=== PATIENT | female | born 1965 | race Caucasian/White ===

== ENCOUNTER 2018-02-19 19:00 | Outpatient (CLI) | payer BC | END 2018-02-19 23:59 | disposition home or self-care (01) | LOC: D.MAMMO 19:00 | DX: Z12.31 Encounter for screening mammogram for malignant neoplasm of breast (principal) ==

== ENCOUNTER → 2018-06-01 09:21 | Outpatient (CLI) | payer BC ==
[~2018-06-01 09:21] MED LIST: ASPIRIN81 MG PO; BENTYL 20 MG TA20 MG PO; CELEBREX 100 M100 MG PO; CRESTOR20 MG PO; EFFEXOR XR150 MG PO; FLAGYL500 MG PO; FLORAJEN3 CAPS460 MG PO; HYDROCHLOROTHIA25 MG PO; KLONOPIN1 MG PO; LEVAQUIN750 MG PO; NORCO 10-325 TA1 TAB PO; PEPCID AC20 MG PO; TENORMIN50 MG PO
[2018-06-02 10:56] VITALS: BMI 31.4
== END | disposition home or self-care (01) ==
LOC: D.CT 09:21
DX: R10.12 Left upper quadrant pain (principal)

== ENCOUNTER 2018-06-01 10:30 | Inpatient (IN) | payer BC ==
[~2018-06-01] VITALS: Ht 165.1 cm; Wt 85.7 kg
--- NOTE | ~2018-06-01 | MORECARE ---
CASE MANAGEMENT DISCHARGE SUMMARY PATIENT: WALI HASSAN UNIT: [id number] ADM DATE: 06/01/18 AGE: 52 : 63 SEX: F ROOM/BED: D.1211 AUTHOR: AXEL,DOC PHYSICIAN: REFERRING PHYSICIAN: CRYSTAL LUDWIG MD DATE OF SERVICE: 06/07/18 Discharge Plan Patient Name: WALI HASSAN [facility] 1965 Planned Disposition: Home Anticipated Discharge Date: Discharge Date: 06/05/2018 Expected LOS: Initial Reviewer: [email or web address] Initial Review Date: 06/01/2018 Generated: 06/07/18 10:21 am Comments DCP- Discharge Planning Updated by [email or web address]: Shelby Ugalde on 06/02/18 5:[address] Patient Name: WALI HASSAN Admission Status: ER Accout number: [id number] Admission Date: 06-01-2018 : 1965 Admission Diagnosis:GASTROINTESTINAL HEMORRHAGE, UNSPECIFIED Attending: CRYSTAL LUDWIG Current LOS: 1 Anticipated DC Date: Planned Disposition: Home Primary Insurance: [employer] O Discharge Planning Comments: CM met with patient at bedside. Patient states that she will return home with at discharge. Patient denies any discharge needs at this time. CM will continue to follow and assist with discharge planning / needs. Hand Roller Engraver: Shelby Ugalde DCPIA - Discharge Planning Initial Assessment Updated by [email or web address]: Shelby Ugalde on 06/02/18 6:06 pm * Is the patient Alert and Oriented? Yes * How many steps to enter\exit or inside your home? * PCP Mercedes Orozco * Pharmacy [facility] * Preadmission Environment Home with Family * ADLs Independent * Equipment CPAP * List name and contact numbers for known caregivers / representatives who currently or will assist patient after discharge: Cedric Hassan [phone] * Verbal permission to speak to the caregivers and representatives has been obtained from the patient. N/A * Community resources currently utilized None * Additional services required to return to the preadmission environment? No * Can the patient safely return to the preadmission environment? Yes * Has this patient been hospitalized within the prior 30 days at any hospital? No Last DP export: 06/02/18 5:08 Patient Name: WALI HASSAN Page [id number] at 0921 All edits/amendments must be made on the electronic document DICTATION DATE: 06/07/18920 WIRELESS ARCHITECT: SHERRY 06/07/18920 RPT#: [id number] DC DATE:06/05/18 STATUS: DIS IN [facility] [address] [place] [address] END OF REPORT
--- NOTE | ~2018-06-01 | MORECARE ---
CASE MANAGEMENT DISCHARGE SUMMARY PATIENT: WALI HASSAN UNIT: [id number] ADM DATE: 06/01/18 AGE: 52 : 63 SEX: F ROOM/BED: D.1211 AUTHOR: AXEL,DOC PHYSICIAN: REFERRING PHYSICIAN: CRYSTAL LUDWIG MD DATE OF SERVICE: 06/02/18 Discharge Plan Patient Name: WALI HASSAN [facility]:[employer] : 1965 Planned Disposition: Home Anticipated Discharge Date: Discharge Date: Expected LOS: Initial Reviewer: [email or web address] Initial Review Date: 06/01/2018 Generated: 06/02/18 7:08 pm Comments DCP- Discharge Planning Updated by [email or web address]: Shelby Ugalde on 06/02/18 5:[address] Patient Name: WALI HASSAN Admission Status: ER Accout number: [id number] Admission Date: 06-01-2018 : 1965 Admission Diagnosis:GASTROINTESTINAL HEMORRHAGE, UNSPECIFIED Attending: CRYSTAL LUDWIG Current LOS: 1 Anticipated DC Date: Planned Disposition: Home Primary Insurance: [employer] O Discharge Planning Comments: CM met with patient at bedside. Patient states that she will return home with at discharge. Patient denies any discharge needs at this time. CM will continue to follow and assist with discharge planning / needs. Institutional Cook: Shelby Ugalde DCPIA - Discharge Planning Initial Assessment Updated by [email or web address]: Shelby Ugalde on 06/02/18 6:06 pm * Is the patient Alert and Oriented? Yes * How many steps to enter\exit or inside your home? * PCP Mercedes Orozco * Pharmacy [facility] * Preadmission Environment Home with Family * ADLs Independent * Equipment CPAP * List name and contact numbers for known caregivers / representatives who currently or will assist patient after discharge: Cedric Hassan [phone] * Verbal permission to speak to the caregivers and representatives has been obtained from the patient. N/A * Community resources currently utilized None * Additional services required to return to the preadmission environment? No * Can the patient safely return to the preadmission environment? Yes * Has this patient been hospitalized within the prior 30 days at any hospital? No Patient Name: WALI HASSAN Page [id number] at 1808 All edits/amendments must be made on the electronic document DICTATION DATE: 06/02/181807 APPLICATION DEVELOPER: SHERRY 06/02/181807 RPT#: [id number] DC DATE: STATUS: ADM IN [facility] [address] [place] [address] END OF REPORT
[2018-06-01] MEDS ORDERED: KLONOPIN1 MG PO (10:36)
[2018-06-01] MEDS ORDERED: EFFEXOR XR150 MG PO (10:36)
[2018-06-01] MEDS ORDERED: HYDROCHLOROTHIA25 MG PO (10:37)
[2018-06-01] MEDS ORDERED: TENORMIN50 MG PO (10:37)
[2018-06-01] MEDS ORDERED: CRESTOR20 MG PO (10:37)
[2018-06-01] MEDS ORDERED: NORCO 10-325 TA1 TAB PO (10:37)
[2018-06-01] MEDS ORDERED: CELEBREX 100 M100 MG PO (10:38)
[2018-06-01] MEDS ORDERED: ASPIRIN81 MG PO (10:38)
[2018-06-01 11:14] LABS: BASOPHILS 0.1 % (0-2); EOSINOPHILS 0.6 % (0-7); HEMATOCRIT 46.4 % (36.0-48.0); IMMATURE GRANULOCYTES 0.3 % (0-5); LYMPHOCYTES 22.7 % (15-50); MCH 31.9 pg (26.0-34.0); MCHC 34.5 g/dL (31.0-37.0); MCV 92.6 fL (80.0-100.0); MEAN PLATELET VOLUME 10.4 fL (7.4-10.4); MONOCYTES 11.5 % (2-11); NEUTROPHILS 64.8 % (40-80); PLATELET COUNT 263 10x3/uL (130-400); RBC 5.01 10x6/uL (4.00-5.40); RDW 12.5 % (11.5-14.5); WBC 11.7 10x3/uL (4.8-10.8)
[2018-06-01 11:27] LABS: ALBUMIN 3.8 g/dL (3.4-5.0); ALKALINE PHOSPHATASE 95 U/L (46-116); ALT (SGPT) 58 U/L (10-68); AMYLASE - SERUM 55 U/L (25-115); BILIRUBIN - TOTAL 0.76 mg/dL (0.2-1.3); CALC OSMOLALITY 272 mosm/kg (275-300); CALCIUM 9.1 mg/dL (8.5-10.1); CARBON DIOXIDE 32.7 mmol/L (21.0-32.0); CHLORIDE - SERUM 98 mmol/L (98-107); CREATININE - SERUM 0.8 mg/dL (0.6-1.3); GLUCOSE 103 mg/dL (74-106); LIPASE 136 U/L (73-393); POTASSIUM - SERUM 3.6 mmol/L (3.5-5.1); PROTEIN - SERUM 7.8 g/dL (6.4-8.2); SODIUM 137 mmol/L (136-145); UREA NITROGEN 10 mg/dL (7-18); eGFR NON AFRICAN AMERICAN 79 mL/min (90-120)
[2018-06-01 11:30] LABS: APTT 28.5 SECONDS (22.8-39.4); INR 0.97 (0.85-1.17); PROTIME 12.6 SECONDS (11.6-15.0)
[2018-06-01 12:56] LABS: ERYTHROCYTE SEDIMENTATION RATE 5 mm/hr (0-30)
[2018-06-01 14:00] VITALS: BP 121/78
[2018-06-01 14:44] LABS: APPEARANCE CLEAR (CLEAR); BILIRUBIN NEGATIVE (NEGATIVE); COLOR YELLOW (YELLOW); GLUCOSE NEGATIVE (NEGATIVE); KETONE NEGATIVE (NEGATIVE); NITRITE NEGATIVE (NEGATIVE); PROTEIN NEGATIVE (NEGATIVE); UROBILINOGEN NORMAL (NORMAL)
[2018-06-01 14:46] LABS: BACTERIA FEW /hpf (NONE SEEN); RED CELLS - URINE OCC /hpf (0-5); WHITE CELLS - URINE 0-5 /hpf (0-5)
[2018-06-01 17:34] VITALS: BP 137/87; BMI 31.5
[2018-06-01 20:06] VITALS: BP 131/76
[2018-06-02] VITALS: BP 110/63
[2018-06-02 04:00] VITALS: BP 93/54
[2018-06-02 05:38] LABS: BASOPHILS 0.1 % (0-2); EOSINOPHILS 1.7 % (0-7); HEMATOCRIT 38.7 % (36.0-48.0); LYMPHOCYTES 40.6 % (15-50); MCH 31.8 pg (26.0-34.0); MCHC 33.6 g/dL (31.0-37.0); MEAN PLATELET VOLUME 10.1 fL (7.4-10.4); MONOCYTES 12.7 % (2-11); NEUTROPHILS 44.9 % (40-80); RBC 4.09 10x6/uL (4.00-5.40); RDW 12.7 % (11.5-14.5)
[2018-06-02 06:10] LABS: ALKALINE PHOSPHATASE 66 U/L (46-116); BILIRUBIN - TOTAL 0.72 mg/dL (0.2-1.3); CALC OSMOLALITY 277 mosm/kg (275-300); CALCIUM 8.2 mg/dL (8.5-10.1); CARBON DIOXIDE 29.2 mmol/L (21.0-32.0); CHLORIDE - SERUM 104 mmol/L (98-107); CREATININE - SERUM 0.8 mg/dL (0.6-1.3); GLUCOSE 116 mg/dL (74-106); POTASSIUM - SERUM 3.5 mmol/L (3.5-5.1); SODIUM 140 mmol/L (136-145); UREA NITROGEN 8 mg/dL (7-18); eGFR NON AFRICAN AMERICAN 79 mL/min (90-120)
[2018-06-02 06:12] LABS: MCV 94.6 fL (80.0-100.0); PLATELET COUNT 202 10x3/uL (130-400); WBC 7.6 10x3/uL (4.8-10.8)
[2018-06-02 06:16] LABS: ALBUMIN 2.8 g/dL (3.4-5.0); ALT (SGPT) 38 U/L (10-68); PROTEIN - SERUM 5.8 g/dL (6.4-8.2)
[2018-06-02 07:42] VITALS: BP 103/47
[2018-06-02 10:56] VITALS: Ht 165.1 cm; Wt 85.7 kg
[2018-06-02 11:37] VITALS: BP 105/61
[2018-06-02 20:00] VITALS: BP 84/47
[2018-06-02 23:25] VITALS: BP 88/53
[2018-06-03 04:00] VITALS: BP 145/70
[2018-06-03 06:55] LABS: BASOPHILS 0.2 % (0-2); EOSINOPHILS 1.3 % (0-7); HEMATOCRIT 36.2 % (36.0-48.0); HEMOGLOBIN 12.2 g/dL (12-16); IMMATURE GRANULOCYTES 0.1 % (0-5); LYMPHOCYTES 29.6 % (15-50); MCH 31.2 pg (26.0-34.0); MCHC 33.7 g/dL (31.0-37.0); MEAN PLATELET VOLUME 9.8 fL (7.4-10.4); MONOCYTES 9.4 % (2-11); NEUTROPHILS 59.4 % (40-80); PLATELET COUNT 198 10x3/uL (130-400); RBC 3.91 10x6/uL (4.00-5.40); RDW 12.3 % (11.5-14.5); WBC 8.3 10x3/uL (4.8-10.8)
[2018-06-03 06:58] LABS: MCV 92.6 fL (80.0-100.0)
[2018-06-03 07:15] VITALS: BP 118/61
[2018-06-03 07:15] LABS: ANION GAP 9.4 mmol/L (8-16); CALCIUM 8.3 mg/dL (8.5-10.1); CARBON DIOXIDE 30.8 mmol/L (21.0-32.0); CREATININE - SERUM 0.9 mg/dL (0.6-1.3); POTASSIUM - SERUM 3.2 mmol/L (3.5-5.1)
[2018-06-03 11:15] VITALS: BP 93/49
[2018-06-03 15:37] VITALS: BP 122/41
[2018-06-03 19:39] VITALS: BP 106/68
[2018-06-04] VITALS: BP 98/57
[2018-06-04 04:00] VITALS: BP 107/68
[2018-06-04 06:42] LABS: BASOPHILS 0.1 % (0-2); HEMATOCRIT 38.4 % (36.0-48.0); HEMOGLOBIN 13.2 g/dL (12-16); IMMATURE GRANULOCYTES 0.3 % (0-5); MCH 31.6 pg (26.0-34.0); MCHC 34.4 g/dL (31.0-37.0); MCV 91.9 fL (80.0-100.0); MONOCYTES 12.1 % (2-11); NEUTROPHILS 55.5 % (40-80); PLATELET COUNT 199 10x3/uL (130-400); RBC 4.18 10x6/uL (4.00-5.40); RDW 12.5 % (11.5-14.5); WBC 7.6 10x3/uL (4.8-10.8)
[2018-06-04 07:08] LABS: CALC OSMOLALITY 276 mosm/kg (275-300); CALCIUM 8.4 mg/dL (8.5-10.1); CHLORIDE - SERUM 104 mmol/L (98-107); CREATININE - SERUM 0.8 mg/dL (0.6-1.3); GLUCOSE 121 mg/dL (74-106); POTASSIUM - SERUM 3.4 mmol/L (3.5-5.1); SODIUM 140 mmol/L (136-145); UREA NITROGEN 5 mg/dL (7-18); eGFR NON AFRICAN AMERICAN 79 mL/min (90-120)
[2018-06-04 08:50] VITALS: BP 112/56
[2018-06-04 11:29] VITALS: BP 109/63
[2018-06-04 15:19] VITALS: BP 95/66
[2018-06-04 17:15] LABS: CALC OSMOLALITY 279 mosm/kg (275-300); CALCIUM 9.1 mg/dL (8.5-10.1); CARBON DIOXIDE 33.6 mmol/L (21.0-32.0); CHLORIDE - SERUM 105 mmol/L (98-107); CREATININE - SERUM 0.7 mg/dL (0.6-1.3); GLUCOSE 95 mg/dL (74-106); POTASSIUM - SERUM 3.8 mmol/L (3.5-5.1); SODIUM 142 mmol/L (136-145); UREA NITROGEN 4 mg/dL (7-18); eGFR NON AFRICAN AMERICAN > 90 mL/min (90-120)
[2018-06-04 19:40] VITALS: BP 106/62
[2018-06-05] VITALS: BP 91/47
[2018-06-05 04:00] VITALS: BP 111/68
[2018-06-05 05:37] LABS: BASOPHILS 0.2 % (0-2); EOSINOPHILS 4.5 % (0-7); HEMATOCRIT 37.1 % (36.0-48.0); HEMOGLOBIN 12.8 g/dL (12-16); IMMATURE GRANULOCYTES 0.2 % (0-5); LYMPHOCYTES 34.2 % (15-50); MCH 31.6 pg (26.0-34.0); MCHC 34.5 g/dL (31.0-37.0); MCV 91.6 fL (80.0-100.0); MEAN PLATELET VOLUME 10.2 fL (7.4-10.4); MONOCYTES 9.7 % (2-11); NEUTROPHILS 51.2 % (40-80); PLATELET COUNT 189 10x3/uL (130-400); RBC 4.05 10x6/uL (4.00-5.40); RDW 12.4 % (11.5-14.5); WBC 6.2 10x3/uL (4.8-10.8)
[2018-06-05 06:01] LABS: ANION GAP 8.6 mmol/L (8-16); CALCIUM 8.5 mg/dL (8.5-10.1); POTASSIUM - SERUM 3.6 mmol/L (3.5-5.1)
[2018-06-05 06:02] LABS: CREATININE - SERUM 0.9 mg/dL (0.6-1.3)
[2018-06-05 07:16] VITALS: BP 104/53
[2018-06-05 10:35] VITALS: BP 119/73
[2018-06-05] MEDS ORDERED: LEVAQUIN750 MG PO (11:02)
[2018-06-05] MEDS ORDERED: PEPCID AC20 MG PO (11:03)
[2018-06-05] MEDS ORDERED: FLAGYL500 MG PO (11:03)
[2018-06-05] MEDS ORDERED: FLORAJEN3 CAPS460 MG PO (11:04)
[2018-06-05] MEDS ORDERED: BENTYL 20 MG TA20 MG PO (11:04)
== END 2018-06-05 12:15 | disposition home or self-care (01) | DRG 392 ==
LOC: D.ER 10:30 → D.M3 13:14 → D.EDHOLD 13:14 → D.M3 14:47
PROVIDERS: Family Medicine; Internal Medicine Gastroenterology
PROC: 0DBL8ZX Excision of Transverse Colon, Via Natural or Artificial Opening Endoscopic, Diagnostic (ICD-10-PCS; 2018-06-05)
PROC: 0DBN8ZX Excision of Sigmoid Colon, Via Natural or Artificial Opening Endoscopic, Diagnostic (ICD-10-PCS; principal; 2018-06-05 09:00)
DX: K52.9 Noninfective gastroenteritis and colitis, unspecified (principal); K63.9 Disease of intestine, unspecified; I10 Essential (primary) hypertension; E78.5 Hyperlipidemia, unspecified; K21.9 Gastro-esophageal reflux disease without esophagitis; K29.00 Acute gastritis without bleeding; F32.9 Major depressive disorder, single episode, unspecified; K64.8 Other hemorrhoids